=== PATIENT | male | born 1955 | race African-American/Black ===

== ENCOUNTER 2018-08-22 11:08 | Inpatient (IN) ==
--- NOTE | 2018-08-22 13:17 | EKG Report ---
Test Performed on : 08/22/2018 11:20:49 AM Test Reason : AMS Blood Pressure : / mmHG Vent. Rate : 085 BPM Atrial Rate : 085 BPM P-R Int : 134 ms QRS Dur : 074 ms QT Int : 372 ms P-R-T Axes : 029 019 070 degrees QTc Int : 442 ms Normal sinus rhythm. Moderate voltage criteria for LVH, may be normal variant Cannot rule out Septal infarct (cited on or before 15-AUG-2018) Abnormal ECG When compared with ECG of 15-AUG-2018 10:16, (Unconfirmed) Sinus rhythm. has replaced Atrial fibrillation. Unconfirmed Result
--- NOTE | 2018-08-22 13:39 | Diag Imaging Result Doc PS360 ---
EXAM: CT HEAD W/O CONTRAST HISTORY: AMS TECHNIQUE: CT head without contrast COMPARISON: 08/15/2018 FINDINGS: No parenchymal hemorrhage. No epidural or subdural hematoma. No subarachnoid hemorrhage. There is atrophy with chronic microvascular ischemic changes. No mass identified on this noncontrasted exam. No hydrocephalus. There is a cavum septum defect. This is a normal variant. No sinus opacification. IMPRESSION: 1.No hemorrhage 2.Atrophy with chronic microvascular ischemic changes similar to the prior study This exam was performed using automated exposure control, adjustment of mA or kV according to patient size, and/or use of iterative reconstruction technique. Electronically signed by Buddy Espitia 08/22/2018 1:37 PM
[2018-08-22 13:43] LABS: BASO# 0.01 X1000 (0.0-0.2); BASO% 0.2 % (0.0-0.8); EOS# 0.13 X1000 (0.0-0.7); HEMATOCRIT 39.2 % (42.0-52.0); HEMOGLOBIN 12.9 g/dL (14.0-18.0); LYMPH# 2.88 X1000 (1.2-3.4); LYMPH% 45.1 % (20.5-51.1); MCHC 32.9 g/dL (33-37); MONO# 0.86 X1000 (0.11-0.59); MONO% 13.5 % (1.7-9.3); NEUT% 39.2 % (42.2-75.2); PLT 568 X1000 (130-400); RBC 4.61 XMIL (4.7-6.1); WBC 6.38 X1000 (4.8-10.8)
--- NOTE | 2018-08-22 13:46 | Diag Imaging Result Doc PS360 ---
EXAM: CHEST-PORTABLE 08/22/2018 HISTORY: AMS TECHNIQUE: AP upright at 1346 COMMENT: There is no evidence of acute cardiac or pulmonary disease. Compared to 08/15/2018 there has been no significant change. IMPRESSION: No acute disease. Electronically signed by Magnus Chahal 08/22/2018 1:44 PM
[2018-08-22 13:51] LABS: INR 0.99; PROTIME 13.9 Seconds (11.0-16.0)
[2018-08-22 13:52] LABS: PTT 33.6 Seconds (22.3-41.8)
[2018-08-22 14:02] LABS: AGAP 12; ALB/GLOB RATIO 1.1; ALKALINE PHOSPHATASE 90 U/L (32-122); BUN 12 mg/dL (8-22); CALCIUM 9.4 mg/dL (8.8-10.2); CHLORIDE 97 mmol/L (98-107); COSMO 279; CREATININE 1.1 mg/dL (0.7-1.2); ESTIMATED GFR > 60; GLUCOSE 99 mg/dL (70-104); GOT 21 U/L (10-34); GPT 14 U/L (10-44); POTASSIUM 3.9 mmol/L (3.5-5.1); SODIUM 140 mmol/L (136-145); TCO2 31 mmol/L (25-35); TOTAL BILIRUBIN 0.74 mg/dL (0.20-1.00); TOTAL PROTEIN 7.8 g/dL (6.3-8.3)
[2018-08-22 14:13] LABS: ACETONE SERUM NEGATIVE (NEGATIVE)
[2018-08-22 16:18] LABS: URINE SOURCE CLEAN CATCH
[2018-08-22 16:31] LABS: BILIRUBIN URINE NEGATIVE (NEGATIVE); BLOOD URINE NEGATIVE (NEGATIVE); COLOR YELLOW; GLUCOSE URINE NEGATIVE (NEGATIVE); KETONE URINE 10 mg/dL (NEGATIVE); LEUKOCYTES URINE NEGATIVE (NEGATIVE); NITRITE URINE NEGATIVE (NEGATIVE); PH URINE 7.5; PROTEIN URINE NEGATIVE (NEGATIVE); SP GRAVITY URINE 1.009; TURBIDITY URINE CLEAR (CLEAR); UROBILINOGEN URINE 2 mg/dL (NORMAL)
[2018-08-22 16:33] LABS: UR EPITHELIAL CELLS <10 /HPF (<10); URINE BACTERIA NEGATIVE /HPF; URINE RBC <10 /HPF (<10); URINE WBC <10 /HPF (<10)
[2018-08-22 16:35] LABS: UR AMPHETAMINES QUAL NONE DETECTED (NONE DETECT); UR BARBITUATES QUAL NONE DETECTED (NONE DETECT); UR BENZODIAZEPIN QUAL NONE DETECTED (NONE DETECT); UR CANNABINOIDS QUAL NONE DETECTED (NONE DETECT); UR COCAINE QUAL NONE DETECTED (NONE DETECT); UR METHADONE QUAL NONE DETECTED (NONE DETECT); UR OPIATES QUAL NONE DETECTED (NONE DETECT); UR OXYCODONE QUAL NONE DETECTED (NONE DETECT); UR PCP QUAL NONE DETECTED (NONE DETECT)
[2018-08-22] MEDS ORDERED: LOPRESSOR PO ONE (16:45)
[2018-08-22] MEDS ORDERED: SEROQUEL PO ONE (17:31)
[2018-08-22] MEDS ORDERED: HALDOL IV PRN (17:32)
[2018-08-22] MEDS ORDERED: TYLENOL PO PRN (17:44)
--- NOTE | 2018-08-22 17:49 | PROVIDER DOCUMENTATION ---
This chart was entered by Key Nunn Scribe, acting as scribe for Rusty Sharma MD. HPI-Neurological Disorder - General Chief Complaint: Altered Mental Status Stated Complaint: AMS Time Seen by Provider: 08/22/18 11:25 Source: family Allergies/Adverse Reactions: Patient Allergies Allergy/AdvReac Type Severity Reaction Status Date / Time No Known Allergies Allergy Verified 08/22/18 12:19 Home Medications: Home Medication List Medication Instructions Recorded Confirmed Last Taken Type NK [No Home Medications] 08/22/18 08/22/18 Unknown History - History of Present Illness-Neuro Nature of Presenting Problem: Patient is a 63 year old male who presents to the ED with altered mental status. Patient's family states patient has been disoriented since yesterday. Patient's family states patient had a syncopal episode yesterday. Patient's family denies nausea or vomiting. Patient's blood pressure was 200/98 at 1200. Severity: reports: mild Onset/Duration: reports: 24 hours ago Timing: reports: still present Context: reports: other (AMS) Character of Altered Mental Status: reports: disoriented Any recent trauma/injury?: reports: none New weakness or altered sensation location:: reports: none Gait Baseline: walks without assistance Associated Symptoms: reports: other (syncope) Similar Symptoms Previously?: Yes Recently seen or treated by another doctor?: No Review of Systems - Adult - REVIEW OF SYSTEMS - ADULT Constitutional: reports: no symptoms reported Eyes: reports: no symptoms reported Ears, Nose, Mouth & Throat: reports: no symptoms reported Cardiovascular: reports: no symptoms reported Respiratory: reports: no symptoms reported Gastrointestinal: reports: no symptoms reported Genitourinary: reports: no symptoms reported Musculoskeletal: reports: no symptoms reported Integumentary: reports: no symptoms reported Neurological: reports: syncope, other (AMS - disoriented). denies: dizziness/ vertigo, headache/migraines, numbness, seizure, tremors Psychiatric: reports: no symptoms reported Endocrine: reports: no symptoms reported Hematologic/Lymphatic: reports: no symptoms reported Allergic/Immunologic: reports: no symptoms reported All Other Systems: Reviewed and Negative Past History - Adult - PAST MEDICAL HISTORY-ADULT Review of Records: reports: Nursing Assessment Review, Medications Reviewed, Social history reviewed & non-contributory. Major Childhood Illnesses: reports: denies history Cardiovascular: reports: CAD, HTN, hyperlipidemia, [facility] Respiratory: reports: denies history Gastrointestinal: reports: denies history Obstetrical/Gynecological: reports: denies history Genitourinary: reports: denies history Musculoskeletal: reports: arthritis Neurological: reports: denies history Psychiatric: reports: denies history Endocrine/Immune: reports: denies history Other Conditions: reports: denies history - PRIOR SURGERIES/PROCEDURES Surgical/Procedure History: reports: cardiac stent - IMMUNIZATION STATUS Childhood Immunizations: See Nurse Assessment Flu Vaccine: See Nurse Assessment - FAMILY HISTORY Family History: diabetes - SOCIAL HISTORY Smoking: cigarettes, less than 1 pack/day Provider spent 3-5 mins advising pt. on dangers of tobacco.: Discussed manners to quit use, and f/u contacts for add'l counseling. 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: other (unable to assess patient's condition) Motor/Sensory: other (patient is able to move all extremities) Integumentary: normal color, normal turgor, warm/dry Psych/Mental Status: other (disoriented to place and time) Progress - PLAN OF CARE/RESULTS Progress/Plan/Lab Results: Vital Signs - 8 hr 08/22/18 11:18 08/22/18 11:40 08/22/18 12:02 Temperature 97.5 F L Pulse Rate 83 74 77 Respiratory Rate 16 23 12 Blood Pressure 183/95 200/98 O2 Sat by Pulse Oximetry 100 99 99 08/22/18 12:30 08/22/18 12:40 08/22/18 13:02 Temperature Pulse Rate 72 84 72 Respiratory Rate 15 19 15 Blood Pressure 183/102 O2 Sat by Pulse Oximetry 100 100 100 08/22/18 13:03 08/22/18 13:10 08/22/18 13:20 Temperature Pulse Rate 72 72 71 Respiratory Rate 15 16 20 Blood Pressure O2 Sat by Pulse Oximetry 100 100 100 08/22/18 14:19 08/22/18 15:02 08/22/18 16:02 Temperature Pulse Rate 82 76 88 Respiratory Rate 13 16 15 Blood Pressure 192/107 187/106 187/156 O2 Sat by Pulse Oximetry 100 100 99 08/22/18 17:02 08/22/18 17:20 08/22/18 17:30 Temperature Pulse Rate 80 70 Respiratory Rate 12 Blood Pressure 166/94 O2 Sat by Pulse Oximetry 97 95 97 08/22/18 17:40 08/22/18 17:50 08/22/18 18:00 Temperature Pulse Rate 78 98 H 76 Respiratory Rate Blood Pressure O2 Sat by Pulse Oximetry 100 100 99 08/22/18 18:02 Temperature Pulse Rate 78 Respiratory Rate Blood Pressure 193/111 O2 Sat by Pulse Oximetry 93 L 08/22/18 14:07 Influenza Screen - Final Nasopharyngeal Laboratory Results - last 24 hr 08/22/18 08/22/18 08/22/18 12:42 12:42 12:42 WBC 6.38 RBC 4.61 L Hgb 12.9 L Hct 39.2 L MCV 85.0 MCH 28.0 MCHC 32.9 L RDW Std Deviation 16.0 H Plt Count 568 H MPV 9.0 Immature Gran % (Auto) 0.0 Neut % (Auto) 39.2 L Lymph % (Auto) 45.1 [place] % (Auto) 13.5 H Eos % (Auto) 2.0 Baso % (Auto) 0.2 Immature Gran # (Auto) 0.00 Neut # (Auto) 2.50 Lymph # (Auto) 2.88 [place] # (Auto) 0.86 H Eos # (Auto) 0.13 Baso # (Auto) 0.01 PT INR PTT (Actin FS) Sodium 140 Potassium 3.9 Chloride 97 L Carbon Dioxide 31 Anion Gap 12 BUN 12 Creatinine 1.1 Estimated GFR/1.73 m2 > 60 BUN/Creatinine Ratio 11 Glucose 99 POC Glucose Calculated Osmolality 279 Calcium 9.4 Magnesium 2.2 Total Bilirubin 0.74 AST 21 ALT 14 Alkaline Phosphatase 90 Ammonia Troponin T Total Protein 7.8 Albumin 4.0 Globulin 3.8 Albumin/Globulin Ratio 1.1 Free T4 Urine Source Urine Color Urine Turbidity Urine pH Ur Specific [place] Urine Protein Ur Glucose (Stick) Ur Ketones (Stick) Urine Blood Urine Nitrite Urine Bilirubin Urobilinogen Dipstick Urine Leukocytes Urine WBC (Auto) Urine RBC (Auto) U Epithel Cells (Auto) Urine Bacteria (Auto) Urine Opiates Screen Ur Oxycodone Screen Ur Methadone, Qual Ur Barbiturates Screen Ur Phencyclidine Scrn Ur Amphetamines Screen U Benzodiazepines Scrn Urine Cocaine Screen U Cannabinoids Screen Plasma/Serum Ethyl Alc Acetone Level NEGATIVE 08/22/18 08/22/18 08/22/18 12:42 12:42 12:42 WBC RBC Hgb Hct MCV MCH MCHC RDW Std Deviation Plt Count MPV Immature Gran % (Auto) Neut % (Auto) Lymph % (Auto) [place] % (Auto) Eos % (Auto) Baso % (Auto) Immature Gran # (Auto) Neut # (Auto) Lymph # (Auto) [place] # (Auto) Eos # (Auto) Baso # (Auto) PT 13.9 INR 0.99 PTT (Actin FS) 33.6 Sodium Potassium Chloride Carbon Dioxide Anion Gap BUN Creatinine Estimated GFR/1.73 m2 BUN/Creatinine Ratio Glucose POC Glucose Calculated Osmolality Calcium Magnesium Total Bilirubin AST ALT Alkaline Phosphatase Ammonia Troponin T < 0.010 Total Protein Albumin Globulin Albumin/Globulin Ratio Free T4 1.35 Urine Source Urine Color Urine Turbidity Urine pH Ur Specific [place] Urine Protein Ur Glucose (Stick) Ur Ketones (Stick) Urine Blood Urine Nitrite Urine Bilirubin Urobilinogen Dipstick Urine Leukocytes Urine WBC (Auto) Urine RBC (Auto) U Epithel Cells (Auto) Urine Bacteria (Auto) Urine Opiates Screen Ur Oxycodone Screen Ur Methadone, Qual Ur Barbiturates Screen Ur Phencyclidine Scrn Ur Amphetamines Screen U Benzodiazepines Scrn Urine Cocaine Screen U Cannabinoids Screen Plasma/Serum Ethyl Alc Acetone Level 08/22/18 08/22/18 08/22/18 14:07 14:12 16:05 WBC RBC Hgb Hct MCV MCH MCHC RDW Std Deviation Plt Count MPV Immature Gran % (Auto) Neut % (Auto) Lymph % (Auto) [place] % (Auto) Eos % (Auto) Baso % (Auto) Immature Gran # (Auto) Neut # (Auto) Lymph # (Auto) [place] # (Auto) Eos # (Auto) Baso # (Auto) PT INR PTT (Actin FS) Sodium Potassium Chloride Carbon Dioxide Anion Gap BUN Creatinine Estimated GFR/1.73 m2 BUN/Creatinine Ratio Glucose POC Glucose 92 Calculated Osmolality Calcium Magnesium Total Bilirubin AST ALT Alkaline Phosphatase Ammonia 31 Troponin T Total Protein Albumin Globulin Albumin/Globulin Ratio Free T4 Urine Source CLEAN CATCH Urine Color YELLOW Urine Turbidity CLEAR Urine pH 7.5 Ur Specific [place] 1.009 Urine Protein NEGATIVE Ur Glucose (Stick) NEGATIVE Ur Ketones (Stick) 10 A Urine Blood NEGATIVE Urine Nitrite NEGATIVE Urine Bilirubin NEGATIVE Urobilinogen Dipstick 2 A Urine Leukocytes NEGATIVE Urine WBC (Auto) <10 Urine RBC (Auto) <10 U Epithel Cells (Auto) <10 Urine Bacteria (Auto) NEGATIVE Urine Opiates Screen Ur Oxycodone Screen Ur Methadone, Qual Ur Barbiturates Screen Ur Phencyclidine Scrn Ur Amphetamines Screen U Benzodiazepines Scrn Urine Cocaine Screen U Cannabinoids Screen Plasma/Serum Ethyl Alc Acetone Level 08/22/18 08/22/18 16:05 16:12 WBC RBC Hgb Hct MCV MCH MCHC RDW Std Deviation Plt Count MPV Immature Gran % (Auto) Neut % (Auto) Lymph % (Auto) [place] % (Auto) Eos % (Auto) Baso % (Auto) Immature Gran # (Auto) Neut # (Auto) Lymph # (Auto) [place] # (Auto) Eos # (Auto) Baso # (Auto) PT INR PTT (Actin FS) Sodium Potassium Chloride Carbon Dioxide Anion Gap BUN Creatinine Estimated GFR/1.73 m2 BUN/Creatinine Ratio Glucose POC Glucose Calculated Osmolality Calcium Magnesium Total Bilirubin AST ALT Alkaline Phosphatase Ammonia Troponin T Total Protein Albumin Globulin Albumin/Globulin Ratio Free T4 Urine Source Urine Color Urine Turbidity Urine pH Ur Specific [place] Urine Protein Ur Glucose (Stick) Ur Ketones (Stick) Urine Blood Urine Nitrite Urine Bilirubin Urobilinogen Dipstick Urine Leukocytes Urine WBC (Auto) Urine RBC (Auto) U Epithel Cells (Auto) Urine Bacteria (Auto) Urine Opiates Screen NONE DETECTED Ur Oxycodone Screen NONE DETECTED Ur Methadone, Qual NONE DETECTED Ur Barbiturates Screen NONE DETECTED Ur Phencyclidine Scrn NONE DETECTED Ur Amphetamines Screen NONE DETECTED U Benzodiazepines Scrn NONE DETECTED Urine Cocaine Screen NONE DETECTED U Cannabinoids Screen NONE DETECTED Plasma/Serum Ethyl Alc Acetone Level Orders Category Date Time Status Admit - [facility] Routine AdmDCTranf 08/22/18 17:44 Active Cardiac Monitoring DIRECTED Care 08/22/18 12:56 Active Saline Loc NOW Care 08/22/18 12:56 Active Regular Diet Diet 08/22/18 17:45 Active CHEST-PORTABLE [RAD] Stat Exams 08/22/18 12:[address] HEAD W/O CONTRAST [CT] Stat Exams 08/22/18 12:58 Completed ACETONE SERUM [CHEM] Stat Lab 08/22/18 12:42 Completed ALCOHOL BLOOD Stat Lab 08/22/18 16:12 Completed AMMONIA [CHEM] Stat Lab 08/22/18 14:07 Completed BLOOD CULTURE [BLDCUL] Stat Lab 08/22/18 14:00 Results CBC WITH ELECTRONIC DIFF [HEME] Stat Lab 08/22/18 12:42 Completed COMPREHENSIVE METABOLIC PANEL [CHEM] Stat Lab 08/22/18 12:42 Completed FREE T4 Stat Lab 08/22/18 12:42 Completed Flu Swab [INFLUENZA SCREEN A/B] Stat Lab 08/22/18 14:07 Completed MAGNESIUM [CHEM] Stat Lab 08/22/18 12:42 Completed PROTIME WITH INR [COAG] Stat Lab 08/22/18 12:42 Completed PTT [COAG] Stat Lab 08/22/18 12:42 Completed TROPONIN T Stat Lab 08/22/18 12:42 Completed URINALYSIS W/POSS RFLX CULT [URINALYSIS] Stat Lab 08/22/18 16:05 Completed URINE DRUG SCREEN Stat Lab 08/22/18 16:05 Completed Acetaminophen [Tylenol] Med 08/22/18 17:44 Active 650 mg PO Q6H PRN PRN Amlodipine [Norvasc] Med 08/22/18 21:00 Ordered 5 mg PO BID Haloperidol Lactate [Haldol] Med 08/22/18 17:32 Active 1 mg IV Q2H PRN PRN Metoprolol [Lopressor] Med 08/23/18 09:00 Active 25 mg PO BID Metoprolol [Lopressor] Med 08/22/18 16:45 Discontinued 25 mg PO NOW ONE Omeprazole [Prilosec] Med 08/23/18 07:00 Active 40 mg PO ACB Quetiapine [Seroquel] Med 08/22/18 21:00 Active 100 mg PO BID Quetiapine [Seroquel] Med 08/22/18 17:31 Discontinued 100 mg PO NOW ONE EKG [EKG] Stat Ther 08/22/18 12:57 Draft Transfer/Admit Order [TRANSFER] Routine Transfer 08/22/18 17:37 Ordered Result Diagrams: 08/22/18 12:42 08/22/18 12:42 - EKG 1 Time of EKG reading by physician:: 11:20 EKG Read and Signed by:: Rusty Sharma EKG Interpretation (*Must complete 3 of following elements*): Abnormal (cannot rule out septal infarct, age undetermined) Rate: 85 Rhythm: normal sinus rhythm IA Interval: normal Comments: moderate voltage criteria for LVH, may be normal variant - XRAY 1 XRAY Study: Chest Impression: See EMR Report ( EXAM: CHEST-PORTABLE 08/22/2018 HISTORY: AMS TECHNIQUE: AP upright at 1346 COMMENT: There is no evidence of acute cardiac or pulmonary disease. Compared to 08/15/2018 there has been no significant change. IMPRESSION: No acute disease. Electronically signed by Magnus Chahal 08/22/2018 1:44 PM 08/22/18 1344 Interpreting Physician: Magnus Chahal MD Dictated Date/Time: 08/22/18 1344 cc: Rusty Sharma MD; None,PCP) - CT/MRI 1 CT Study: Head Impression: See EMR Report ( EXAM: CT HEAD W/O CONTRAST HISTORY: AMS TECHNIQUE: CT head without contrast COMPARISON: 08/15/2018 FINDINGS: No parenchymal hemorrhage. No epidural or subdural hematoma. No subarachnoid hemorrhage. There is atrophy with chronic microvascular ischemic changes. No mass identified on this noncontrasted exam. No hydrocephalus. There is a cavum septum defect. This is a normal variant. No sinus opacification. IMPRESSION: 1.No hemorrhage 2.Atrophy with chronic microvascular ischemic changes similar to the prior study This exam was performed using automated exposure control, adjustment of mA or kV according to patient size, and/or use of iterative reconstruction technique. Electronically signed by Buddy Espitia 1:37 PM 08/22/18 1337 Interpreting Physician: Buddy Espitia MD Dictated Date/Time: 08/22/18 1335 cc: Rusty Sharma MD; None,PCP) - CONSULTS/PCP/HOSPITALIST Notification #1 *Consult/PCP/Hospitalist*: LOGAN Henson for Hospitalist Time Discussed: 17:03 Reason/Comments: Dr. Sharma consulted with Natividad about patient Consult Disposition: Will see in ED, Admit Departure - Departure Date of Disposition Decision: 08/22/18 Time of Disposition Decision: 17:04 DIAGNOSIS: Altered mental status, HTN (hypertension) Disposition: ADMITTED INPATIENT 09 Certified Medical Emergency: Emergent Condition: Fair Referrals and Follow-Ups: None,PCP [Primary Care Provider] - - Critical Care Note This patient required my direct & personal management of CC.: No Attestation - Physician/ MIRANDA Attestation The physician spent face to face time with patient:: Yes Advanced Practice Provider documentation review:: Supervising physician onsite and consulted in the evaluation and care of this patient. The physician did have a face to face encounter with the patient. - NIH Stroke Scale Level of Consciousness: 1-Drowsy, but arousable with minimal stimulation LOC Questions (ask month and age): 2-Both Incorrect LOC Commands (ask to open & close eyes;make a fist, let go): 1-Obeys One Correctly Best Gaze (horizontal eye movement): 0-Normal Visual (use finger movement, counting or visual threat): 0-No Visual Loss Facial Palsy (show teeth or raise eyebrows & close eyes tght: 0-Symmetrical Movement Motor Function-left arm: 0-Normal Motor Function-right arm: 0-Normal Motor Function-left le-Normal Motor Function-right le-Normal Limb Ataxia(hfcvgt-[id number], or heel to garcia): 0-No Ataxia Sensory(pin prick to face,arms,trunk,legs-compare side/side): 0-No Ataxia Best Language(name item/read sentence.Ex-Down to Earth): 0-No Aphasia Dysarthria(Pt read words or say words Ex.Mama,Tip-Top,Thanks: 1-Mild-Mod Slurring Words Extinction and Inattention: 1-Partial Neglect (4) This chart was documented by the indicated scribe, (Key Nunn, Kevin) and accurately reflects the services I performed and decisions made by me, Rusty Sharma MD, as attested by the provider's signature.
[2018-08-22] MEDS ORDERED: APRESOLINE IV PRN (18:28)
--- NOTE | 2018-08-22 20:27 | HISTORY AND PHYSICAL ---
PRIMARY CARE PROVIDER: No one. CHIEF COMPLAINT: Family brought in due to patient's altered mental status. HISTORY OF PRESENT ILLNESS: Mr. Sree Kingston is a 63-year-old male with unknown medical history but likely with dementia, as a CT of the head on this admission shows atrophy with chronic microvascular ischemic changes. Apparently he has a history of alcohol use, and according to the family that originally was at the bedside but not at the bedside during this assessment, told the ER staff that he last drank 2 beers yesterday and that he is not a daily beer or alcohol drinker. Urine drug screen and alcohol levels are all 0. He apparently started having some confusion that started up last night, and apparently this is not his baseline. When speaking to him, he is very gibberish with his speech. It is dysarthric. He is unable to come up with conversation. He is able to say he lives with his sister Asia, and his name, but that is all the details he could give me. He was sitting on the end of the bed soaked in urine in the bed and on his blue jeans, and slightly on the agitated side. Very high risk for jumping out of bed, and big risk for fall. Attempts were made at contacting the sister. There were 2 different phone numbers that were in the computer, and both are disconnected at this time. So we will admit him to the [facility]. Will treat him for acute delirium and monitor him overnight. There are no obvious signs of alcohol withdrawal. There are no tremors. He is essentially just in acute delirium. PAST MEDICAL HISTORY: Unknown. PAST SURGICAL HISTORY: Unknown. SOCIAL HISTORY: Per report by the ER staff, he is a smoker and drinks beer, but not on a daily basis. Unknown if there is any illicit drug use. Apparently the family that brought him said they do not give him any money to buy alcohol, so essentially he does not have a lot of money for purchase of alcohol. FAMILY HISTORY: Unknown ALLERGIES: No known drug allergies. HOME MEDICATIONS: No home medications. REVIEW OF SYSTEMS: Unable to obtain, although he told me no to every question asked. PHYSICAL EXAMINATION: VITAL SIGNS: Temperature 97.5, heart rate 80, respiratory rate 12, blood pressure 166/94, O2 saturation 97% on room air. Height 6 feet, weight 165 pounds, with a BMI of 22.4. GENERAL: Mr. Sree Kingston is a 63-year-old male. He is in no acute distress but is slightly agitated and delirious. HEENT: Atraumatic, normocephalic. Pupils are equal and reactive. Would not cooperate with commands such as assessing for extraocular movements. Mucous membranes are moist. NECK: Trachea midline. CARDIOVASCULAR: S1 and S2, regular rate and rhythm. No rubs, gallops or murmurs. No lower extremity edema. No JVD or carotid bruits. Has +2 dorsalis and radial pulses. PULMONARY: Clear to auscultate. Bilateral breath sounds. No accessory muscle use or work of breathing noted. GI: Soft, nontender, nondistended. Positive bowel sounds x4. EXTREMITIES: Moves all extremities equally. NEUROLOGIC: Oriented times name only. A lot of his speech was very gibberish and slurred, just very altered conversation when he would make sense with his words. SKIN: Warm, dry, intact. LABORATORY DATA: White blood cells 6000, hemoglobin 12, hematocrit 39, platelet count 568. INR 0.99. Sodium is 140, potassium 3.9, BUN 12, creatinine 1.1, glucose 99. Calcium is 9.4, magnesium 2.2, bilirubin 0.74, AST 21, ALT 14, ammonia 31. Troponin less than 0.01. Albumin 4.0. Free T4 1.35. Urinalysis: 10 ketones, 2 urobilinogen, otherwise negative Urine drug screen negative. Alcohol level negative. Acetones negative. IMAGING: Head CT: No acute findings. No hemorrhage. There is atrophy with chronic microvascular ischemic changes. EKG: Normal sinus rhythm, rate 85. QTc is 442. ASSESSMENT/PLAN: 1. Acute delirium, acute encephalopathy. Could be alcohol history related. Dementia with behavioral disturbances. We are going to start him on Seroquel 100 mg p.o. twice daily and will add Haldol 1 mg IV every 2 hours p.r.n. for continued agitation, and will monitor closely in the [facility]. He is high risk for falls. 2. Hypertension. Could be situational, but he has had blood pressures anywhere from 187 to 200 over 95 to 107. His heart rate has been in the 80s, but he was given a p.o. dose of metoprolol 25, which helped with blood pressure and brought it down to 166/84. Will continue with metoprolol 25 mg p.o. twice daily, which could also help with some stage fright or anxieties. 3. Possible tobacco abuse. 4. Possible alcohol abuse. His last alcohol intake was 2 beers yesterday. 5. Deep venous thrombosis prophylaxis. He is very active. Will hold off on sequential compression devices, as he could easily trip on those and be in a high-risk fall. Will hold off on Lovenox as well. Dictated by LOGAN Phillips for Jass Salas MD Addendum: Patient seen and examined by myself. Agree with LOGAN note. It reflects my assessment and plan. Patient admitted for acute encephalopathy. Patient is not a good historian. It looks like this patient may have dementia. There is a history of alcohol abuse. Of note blood pressure has been in the range of 180 to 200 systolic BP. It could be contributing to his mental status changes. Will treat it and monitor patient closely in [facility]. cc: LOGAN Phillips MD [facility]
[2018-08-22] MEDS: NORVASC PO SCH (21:00)
[2018-08-22] MEDS ORDERED: SEROQUEL PO SCH ×2 (21:00)
[2018-08-22] MEDS: SEROQUEL PO SCH (21:00)
[2018-08-23 05:49] LABS: BASO# 0.01 X1000 (0.0-0.2); BASO% 0.2 % (0.0-0.8); EOS# 0.16 X1000 (0.0-0.7); EOS% 2.8 % (0.0-10.0); HEMATOCRIT 39.6 % (42.0-52.0); HEMOGLOBIN 13.2 g/dL (14.0-18.0); LYMPH# 2.62 X1000 (1.2-3.4); LYMPH% 46.5 % (20.5-51.1); MCH 28.1 PG (27-31); MCHC 33.3 g/dL (33-37); MCV 84.4 FL (81-99); MONO# 0.68 X1000 (0.11-0.59); MONO% 12.1 % (1.7-9.3); MPV 8.8 FL (7.4-10.4); NEUT# 2.17 X1000 (1.4-6.5); NEUT% 38.4 % (42.2-75.2); PLT 541 X1000 (130-400); RBC 4.69 XMIL (4.7-6.1); RDW 15.9 % (11.5-14.5); WBC 5.64 X1000 (4.8-10.8)
[2018-08-23 06:00] LABS: AGAP 15; ALB/GLOB RATIO 0.9; ALBUMIN 3.9 g/dL (3.5-5.0); ALKALINE PHOSPHATASE 86 U/L (32-122); BUN 10 mg/dL (8-22); CHLORIDE 97 mmol/L (98-107); CK PROFILE 165 U/L (24-204); COSMO 276; ESTIMATED GFR > 60; GLUCOSE 89 mg/dL (70-104); GOT 19 U/L (10-34); GPT 11 U/L (10-44); POTASSIUM 3.2 mmol/L (3.5-5.1); SODIUM 139 mmol/L (136-145); TCO2 27 mmol/L (25-35); TOTAL BILIRUBIN 0.78 mg/dL (0.20-1.00); TOTAL PROTEIN 8.1 g/dL (6.3-8.3)
[2018-08-23 06:14] LABS: INR 1.04; PROTIME 14.4 Seconds (11.0-16.0)
[2018-08-23] MEDS: PRILOSEC PO SCH (06:14)
[2018-08-23 06:15] LABS: PTT 33.5 Seconds (22.3-41.8)
[2018-08-23] MEDS ORDERED: KLOR-CON PO ONE (06:45)
--- NOTE | 2018-08-23 07:12 | EKG Report ---
Test Performed on : 08/23/2018 06:41:43 AM Test Reason : evaluate qtc Blood Pressure : / mmHG Vent. Rate : 084 BPM Atrial Rate : 084 BPM P-R Int : 142 ms QRS Dur : 078 ms QT Int : 348 ms P-R-T Axes : 072 042 077 degrees QTc Int : 411 ms Normal sinus rhythm. Minimal voltage criteria for LVH, may be normal variant Septal infarct (cited on or before 15-AUG-2018) Abnormal ECG When compared with ECG of 22-AUG-2018 11:20, (Unconfirmed) No significant change was found Confirmed by Bakari KERN, Marshal Garrido ([id number]) on 08/23/2018 7:19:50 AM
--- NOTE | 2018-08-23 08:58 | PROGRESS NOTE ---
DATE: 08/23/2018 SUBJECTIVE: Patient is still a little bit confused although he knows that he is in the hospital. According to the nursing staff, he has been quiet all night long. Blood pressure also was getting better. OBJECTIVE: VITAL SIGNS: Temperature 98.3 degrees, heart rate 82, respiratory rate 15, blood pressure 129/69, O2 saturation 100% on room air. GENERAL: This is a clinically looking 63-year- old -[place] male lying in bed in no acute distress. HEENT: Head is normocephalic, atraumatic. NECK: No JVD. No carotid bruit. No lymphadenopathy or thyromegaly. CARDIOVASCULAR: S1, S2 heard. No murmurs, gallops, rubs. Regular rhythm. RESPIRATORY: Clear bilaterally to auscultation. No work of breathing. No use of accessory muscles. ABDOMEN: Soft, nontender to palpation. Bowel sounds present. No organomegaly. EXTREMITIES: No cyanosis, clubbing or edema. Peripheral pulses present in both legs. NEUROLOGICAL: The patient is a little bit sleepy and confused. Oriented to place only on person as well. Moves 4 extremities spontaneously. LABORATORY DATA: White cell count 5.6, hemoglobin 13.2, hematocrit 39.6, platelets 541,000. BMP unremarkable for potassium 3.2. Liver function tests are completely normal. Troponins have been checked and are completely normal as well. CT of head was negative. ASSESSMENT AND PLAN: 1. Acute encephalopathy. At this point, it is not clear what is the reason this patient has encephalopathy. I think it could be related initially to elevated blood pressure. In this case, this patient was having between 180 and 200 systolic blood pressure since yesterday. We have started hydralazine p.r.n. and also beta blockers as well. Blood pressure in this patient is definitely much better. We will continue with the same management. For the delirium, we will use Seroquel 50 mg p.o. twice daily. 2. Uncontrolled hypertension. As we mentioned before, now blood pressure is much better. 3. Possible alcohol abuse. The patient used to be an alcoholic. According to family, he is not drinking any alcohol recently. We will provide thiamine IV for any possible Wernicke's encephalopathy. We will continue to monitor. 4. DVT prophylaxis. Patient is on SCDs. 5. Disposition: I think this patient is pretty much stable. We are going to transfer this patient out of the [facility] today. We will continue to monitor this patient. cc: Jass Salas MD MTDD
[2018-08-23] MEDS ORDERED: SEROQUEL PO SCH (09:00)
[2018-08-23] MEDS ORDERED: LOPRESSOR PO SCH (09:00)
[2018-08-23] MEDS: LOPRESSOR PO SCH ×2 (09:50→22:22)
[2018-08-23] MEDS: NORVASC PO SCH ×2 (09:51→22:22)
[2018-08-23] MEDS: THIAMINE 100 MG in NS 50 ML IV SCH (09:53)
[2018-08-23] MEDS: SEROQUEL PO SCH ×2 (12:39→22:22)
[2018-08-24] MEDS: NORVASC PO SCH ×2 (12:01→21:50)
[2018-08-24] MEDS: LOPRESSOR PO SCH ×2 (12:01→21:50)
[2018-08-24] MEDS: THIAMINE 100 MG in NS 50 ML IV SCH (12:02)
--- NOTE | 2018-08-24 13:00 | PROGRESS NOTE ---
DATE: 08/24/2018 SUBJECTIVE: The patient continues to be confused. According to who is at bedside, patient has been having fluctuance in his mental status. Blood pressure is better controlled right now. OBJECTIVE: Vital Signs: Temperature 98 degrees, heart rate 78, respiratory 16, blood pressure 138/78, O2 saturation 99% on room air. General: This is a chronically ill-looking, 63-year-old male, lying in bed, in no acute distress. Cardiovascular: S1, S2 heard. No murmurs, gallops, or rubs. Regular rate and rhythm. Respiratory: Clear bilaterally to auscultation. No work of breathing or using accessory muscles. Abdomen: Soft, nontender to palpation. Bowel sounds present. No organomegaly. Extremities: No clubbing, cyanosis, or edema. Peripheral pulses present in both legs. Neurological: Patient is more awake but does not have coherent speech at times. Oriented to person. Moves 4 extremities spontaneously. LABORATORY DATA: No labs from today, but from yesterday, almost all them have been pretty much normal. ASSESSMENT AND PLAN: 1. Acute encephalopathy. At this point, I do not know what is the reason why this patient continues to be confused. It could be secondary to dementia that has not been diagnosed formally yet. Initially, the blood pressure was very elevated and I thought that was contributing to this confusion but now, the patient is doing better. For better visualization of the brain anatomy, we will do an MRI of the brain with and without contrast. We will call Neurology. 2. Uncontrolled hypertension. Blood pressure is definitely much better controlled right now. We will continue to monitor. 3. Possible alcohol abuse or possible Wernicke encephalopathy. Patient is being provided thiamine IV but there has not been any improved. 4. Deep vein thrombosis prophylaxis. Patient is on SCDs. 5. Disposition. At this point, the plan is to do an MRI, consult Physical Therapy and consult Neurology, and will go from there. cc: Jass Salas MD
--- NOTE | 2018-08-24 16:28 | CONSULTATION ---
DATE OF CONSULTATION: 08/24/2018 HISTORY OF PRESENT ILLNESS: Mr. Kingston is 63 years old and he was admitted with altered mental state. Initial history is taken from review of hospital records. Mr. Kingston was not able to provide anything relevant. He told me that he feels well, does not have headache, has never had stroke or seizure. He denies recent ethanol use. He reports generally not keeping up with unimportant things such as his current location, the state where he resides, the date, etc. LABS: Workup here includes lab showing nothing remarkable. Urine drug screen was all negative. Noncontrast CT shows some ventriculomegaly with subcortical more than cortical atrophy, but nothing focal or acute, no bleeding, no mass. PHYSICAL EXAMINATION: Vital Signs: He has been afebrile. Initial systolic blood pressures were 180s-212 and recent blood pressures systolic have been 130s-140s. Neurologic/ Mental status exam: On exam, Mr. Kingston is awake, alert, attentive. He answered questions appropriately, but often incorrectly. He told me that he is in [place] and that he does not know the name of the President or the month or day of the week or the year. Speech is dysarthric, sometimes difficult to understand. Otherwise, language function is intact on bedside testing. Remote memory seems fair. He was not attentive to bedside cognitive testing. Specifically, he was not attentive to registering items or trying to interpret simile, metaphor. Head is unremarkable. Neck is supple without meningismus. He has horizontal nystagmus and coarse saccades but full and conjugate eye movements. Facial motility is diminished bilaterally, but symmetric. Gag is intact. Tongue is midline. He can hear. Shoulder shrug is equal. He guarded the right shoulder a little bit, but demonstrated good power there. Tone is symmetric in the limbs. He had trouble with [id number] testing and a little bit more trouble with [id number] testing bilaterally. He reports diminished pinprick appreciation in a stocking pattern bilaterally. Reflexes are absent at the ankles, 2+ at the left knee, uncertain with poor relaxation at the right knee. Plantar response is silent bilaterally. I did not test his gait. IMPRESSION: Global encephalopathy, uncertain etiology. I suspect he has a baseline cognitive impairment syndrome, likely major neurocognitive disorder/dementia. This may be attributed to the reported previous heavy ethanol use. Alzheimer disease is always statistically likely. The current CT findings are noted. He had a scan done 08/15/2018, which shows the same findings. Report of that earlier scan is that findings were not different compared to 08/29/2014 scan, but I cannot pull up images of the 2014 scan for direct comparison today. I do not have any urgent suggestion. If he continues to recover with blood pressure control, we can attribute this to hypertensive urgency aggravating baseline encephalopathy and plan to discharge him with blood pressure management. If he continues with cognitive impairment, we might reassess as an outpatient to better establish his baseline and consider cholinesterase inhibitor trial. Also as an outpatient,we might consider brain MRI. Thanks for asking Neurology to see Mr. Kingston. cc: Chelo Isaac III, MD MTDD
[2018-08-24] MEDS: PRILOSEC PO SCH (19:51)
[2018-08-25] MEDS: PRILOSEC PO SCH (06:02)
[2018-08-25 06:11] LABS: HEMATOCRIT 37.3 % (42.0-52.0); HEMOGLOBIN 12.4 g/dL (14.0-18.0); MCH 28.3 PG (27-31); MCHC 33.2 g/dL (33-37); MCV 85.2 FL (81-99); MPV 8.8 FL (7.4-10.4); RBC 4.38 XMIL (4.7-6.1); WBC 6.31 X1000 (4.8-10.8)
[2018-08-25 06:58] LABS: AGAP 11; BUN 18 mg/dL (8-22); CALCIUM 8.3 mg/dL (8.8-10.2); CHLORIDE 98 mmol/L (98-107); COSMO 268; ESTIMATED GFR > 60; GLUCOSE 92 mg/dL (70-104); POTASSIUM 4.1 mmol/L (3.5-5.1); SODIUM 133 mmol/L (136-145); TCO2 24 mmol/L (25-35)
[2018-08-25 08:21] VITALS: BP 162/74
[2018-08-25] MEDS: THIAMINE 100 MG in NS 50 ML IV SCH (09:35)
[2018-08-25] MEDS: NORVASC PO SCH (09:35)
[2018-08-25] MEDS: LOPRESSOR PO SCH (09:35)
--- NOTE | 2018-08-25 16:03 | DISCHARGE SUMMARY ---
ADMISSION DATE: 08/22/2018 DISCHARGE DATE: 08/25/2018 ADMISSION DIAGNOSES: 1. Acute delirium, acute encephalopathy, possibly alcohol related with dementia and behavioral disturbances. 2. Hypertension. 3. Tobacco abuse. 4. Possible alcohol abuse. DISCHARGE DIAGNOSES: 1. Acute encephalopathy. No real reason. We could not find a true reason that was causing his acute encephalopathy. It did improve daily. 2. Uncontrolled hypertension, much more controlled with antihypertensives. 3. Possible alcohol abuse or Wernicke encephalopathy. He was provided with thiamine. CONSULTATIONS: Neurology with Dr. Isaac who also diagnosed him with global encephalopathy of uncertain etiology and he feels like there was a baseline cognitive impairment syndrome, likely major neurocognitive disorder or dementia which could be attributed to the previous heavy alcohol use. Alzheimer's disease is always statistically most likely. Other than controlling the blood pressure there were no other recommendations. PROCEDURES OR SURGERIES: None. HOSPITAL COURSE: On 08/22/2018 Mr. Sree Kingston, a 63-year-old male, presented with progressive altered mental status and a history of alcohol use with 2 beers being drank the day before. He had a urine drug screen that was negative. Alcohol level was negative. The confusion essentially worsened yesterday. He was dysarthric, very gibberish with his speech, and unable to conversate or answer many questions. When he was in the E.R. he was soaked in urine and sitting on the side of the bed agitated making him a high fall risk. He was initially started on Seroquel and Haldol p.r.n. and Neurology was consulted who felt like it could have been a baseline of dementia or Alzheimer's and recommended blood pressure control. He had significant elevated blood pressures of 180s to 200s when he was first admitted but metoprolol, Norvasc, and Apresoline all helped bring it down. Vital signs remained stable. His neuro status improved and it was deemed appropriate for discharge home in the care of his family. DISCHARGE VITAL SIGNS: Temperature 98.4, heart rate 73, respiratory rate 16, blood pressure 162/74, and O2 saturation 100% on room air. DISCHARGE LAB DATA: White blood cells 6,000, hemoglobin 12, hematocrit 37, and platelet count 529. Sodium 133, potassium 4.1, BUN 18, creatinine 1, glucose 92, and calcium 8.3. PERTINENT IMAGING DURING THE HOSPITAL STAY: On 08/22/2018 chest x-ray showed no acute disease. Head CT showed no hemorrhage. Atrophy with chronic microvascular ischemic changes similar to a previous study. EKG: Normal sinus rhythm, rate 84, and QTc 411. DISCHARGE MEDICATIONS: New medications that he was started on: 1. Norvasc 5 mg p.o. daily. 2. Metoprolol 50 mg p.o. twice daily. 3. Prilosec 40 mg p.o. before meals. DISCHARGE FOLLOW UP: None. DISCHARGE DIET: Regular. DISCHARGE ACTIVITY: As tolerated. DISCHARGE INSTRUCTIONS: Alcohol and tobacco cessation discussed and to watch and monitor for further worsening of delirium type state and to seek medical attention. High fall risk to alleviate any risk for causing falls at home. Also, to start taking medications for blood pressure as prescribed. DISCHARGE DISPOSITION: Home. Dictated by LOGAN Phillips for Jass Salas MD Addendum: Patient seen and examined by myself. Agree with LOGAN note. It reflects my assessment and plan. Patient is being discharged in stable condition. Will be seen by Neurologist as outpatient in 2 weeks. cc: LOGAN Phillips MD MTDD
== END 2018-08-25 11:15 | disposition home or self-care (01) | DRG 71 ==
LOC: ED 11:08 → EDIPHOLD 17:50 → 3S 08-23 00:37 → 4N 08-23 16:09
PROVIDERS: ATTEND Internal Medicine
CPT/HCPCS: 70450; 71010; 71045; 80048; 80053; 80101; 80301; 80307; 80320; 80324; 80345; 80346; 80353; 80358; 80361; 80365; 81001; 82009; 82055; 82140; 82550; 82948; 83735; 83992; 84439; 84443; 84484; 85025; 85027; 85610; 85730; 87040; 87275; 87276; 87804; 93005; 93010; 94761; 94799; 97116; 97162; 97530; 99285; A9270; G0431; G0434; G0479; G0480; G6040; J3411; XXXXX